=== PATIENT | male | born 1970 | race Caucasian/White ===

== ENCOUNTER → 2024-04-22 07:37 | Outpatient (REF) | payer BC, SELFPAY | LOC: DHCBC/DCA 07:37 | PROVIDERS: ATTENDING PHYSICIAN Internal Medicine | DX: I25.10 Atherosclerotic heart disease of native coronary artery without angina pectoris (principal); Z95.5 Presence of coronary angioplasty implant and graft; R07.89 Other chest pain | CPT/HCPCS: 78452; 93017; A9500 ==

== ENCOUNTER 2025-07-07 10:41 | Outpatient (RCR) | payer BC, SELFPAY ==
[2025-07-07] MEDS: LEQVIO 284 MG SC (11:03)
[2025-07-07 11:07] VITALS: BP 117/68
== END 2025-07-10 11:00 | disposition home or self-care (01) ==
LOC: OID 10:41
PROVIDERS: ATTENDING PHYSICIAN Internal Medicine
DX: I25.10 Atherosclerotic heart disease of native coronary artery without angina pectoris (principal); Z95.5 Presence of coronary angioplasty implant and graft; I10 Essential (primary) hypertension
CPT/HCPCS: 96372; J1306